=== PATIENT | male | born 1990 | race Caucasian/White ===

== ENCOUNTER 2016-12-29 13:10 | Emergency (ER) | payer OTHER ==
[~2016-12-29] VITALS: Ht 170.2 cm; Wt 65.0 kg
[~2016-12-29 13:10] MED LIST: ALBU.5I NEB; ALBU0.08 NEB; ALBUAER3 INH; PRED50 PO; VENTAER INH
[2016-12-29 13:13] VITALS: BP 124/75; PULSE 88; TEMP 97.7; O2SAT 99
[2016-12-29] MEDS ORDERED: ADVA100A INH (13:26)
--- NOTE | 2016-12-29 13:26 | PD ---
Physical Exam Date Seen by Provider: Dec 29, 2016 Time Seen by Provider: 13:23 Narrative 26 YOWM C/O DYSURIA AND PENILE D/C. POS UNPROTECTED INTERCOARSE. NONO ABD PAIN. NO F/C VSS. AWAITING BED PLACEMENT Data Data Last Documented VS Vital Signs Date Time Temp Pulse Resp B/P Pulse Ox O2 Delivery O2 Flow Rate FiO2 12/29/16 13:13 97.7 88 124/75 99 MDM Medical Record Reviewed: Yes Supervised Visit with KENAN: Yes Maxi Escalante Dec 29, 2016 13:26
[2016-12-29] MEDS ORDERED: LIDOCAINE HCL 1% 50 ML VIAL IM ONE (13:30)
[2016-12-29] MEDS ORDERED: cefTRIAXone 250 MG VIAL IM ONE (13:30)
[2016-12-29] MEDS ORDERED: AZITHROMYCIN PWD FOR SUSP 1 GM PACKET PO ONE (13:30)
--- NOTE | 2016-12-29 13:49 | PD ---
HPI Chief Complaint: Complaint Time Seen by Provider: 13:45 Travel History International Travel<30 days: No Contact w/Intl Traveler<30days: No Traveled to known affect area: No History of Present Illness HPI 26-year-old male presents to emergency Department with complaint of burning on urination and penile discharge. He noticed the burning on urination that started on Friday. Noticed the drainage from his penis today. He denies abdominal pain. Denies fever, chills, nausea, vomiting. Denies hematuria, urgency, frequency. Has not taken any medications or tried any treatments alleviate his symptoms. Engages in unprotected sexual intercourse with his girlfriend of 2 years and reports being monogamous. Allergies to, and ragweed, cultivated O pollen, dust. History of asthma. No other modifying factors or associated signs and symptoms. PFSH Past Medical History Medical History: Denies Significant Hx Asthma: Yes Anxiety: Yes Depression: Yes Heart Rhythm Problems: No Cardiovascular Problems: No High Cholesterol: No Chemotherapy: No Chest Pain: No Congestive Heart Failure: No COPD: No Diabetes: No Diminished Hearing: No Gastrointestinal Disorders: No Genitourinary: No Hypertension: No Immune Disorder: No Implanted Vascular Access Dvce: No Musculoskeletal: No Neurologic: No Psychiatric: Yes Reproductive: No Respiratory: Yes Immunizations Current: Yes Sleep Apnea: Yes (asthma in middle of night wakes him up) Thyroid Disease: No Past Surgical History Other Surgery: No Social History Alcohol Use: Yes (OCC) Tobacco Use: Yes Substance Use: Yes (pot occassionally) Allergies-Medications (Allergen,Severity, Reaction): Coded Allergies: Common Ragweed (Verified Allergy, Severe, cough, sneeze, wheeze, tightens chest airways. , 12/29/16) Cultivated Oat Pollen (Verified Allergy, Severe, cough, sneeze wheeze, tightens up chest airways. , 12/29/16) Dust (Verified Allergy, Severe, cough, sneeze, wheeze, tightens up chest airways, 12/29/16) Reported Meds & Prescriptions Reported Meds & Active Scripts Active Keflex (Cephalexin) 500 Mg Cap 500 Mg PO Q12H 7 Days Albuterol Neb (Albuterol Sulfate) 2.5 Mg/3 Ml Neb 2.5 Mg NEB Q4HR NEB While awake Proair Hfa 8.5 GM Inh (Albuterol Sulfate) 90 Mcg/Act Aer 2 Puff INH Q4-6H PRN 108 mcg/actuation Reported Advair Diskus Inh (Fluticasone-Salmeterol Inh) 100-50 Mcg/Blist Aer 1 Puff INH BID Rinse mouth after use. Albuterol Neb (Albuterol Sulfate) 2.5 Mg/0.5 Ml Neb 2.5 Mg NEB Q4HR NEB PRN Note: The Albuterol Sulfate Inhalation Solution is concentrated and must be diluted. Read complete instructions carefully before using. Ventolin Hfa 18 GM Inh (Albuterol Sulfate) 90 Mcg/Act Aer 2 Puff INH Q4H PRN Review of Systems Except as stated in HPI: all other systems reviewed are Neg Physical Exam Narrative GENERAL: Well-nourished, well-developed male patient, in no acute distress SKIN: Warm and dry. HEAD: Atraumatic. Normocephalic. EYES: Pupils equal and round. ENT: Mucosa pink and moist. NECK: Trachea midline. No lymphadenopathy. CARDIOVASCULAR: Regular rate and rhythm. No murmur appreciated. RESPIRATORY: No accessory muscle use. Clear to auscultation. Breath sounds equal bilaterally. GASTROINTESTINAL: Abdomen soft and nondisteneded; with tenderness at the umbilicus on palpation. Hepatic and splenic margins not palpable. Bowel sounds are active 4 quadrants. GENITOURINARY: Circumcised. Testes descended bilaterally without evidence of rotation. No lesions or erythema. Large amount of Milky, white urethral discharge. MUSCULOSKELETAL: No obvious deformities. No clubbing. No cyanosis. No edema. NEUROLOGICAL: Awake and alert. Oriented 3. No obvious cranial nerve deficits. Motor grossly within normal limits. Normal speech. Moves all extremities. 5/5 strength to all extremities. PSYCHIATRIC: Appropriate mood and affect; insight and judgment normal. Data Data Last Documented VS Vital Signs Date Time Temp Pulse Resp B/P Pulse Ox O2 Delivery O2 Flow Rate FiO2 12/29/16 13:13 97.7 88 124/75 99 Orders Gc And Chlamydia Pcr (12/29/16 13:27) Urinalysis - C+S If Indicated (12/29/16 13:27) Azithromycin Powd Pack (Zithromax Powd P (12/29/16 13:30) Ceftriaxone Inj (Rocephin Inj) (12/29/16 13:30) Lidocaine 1% Inj (50 Ml) (Xylocaine 1% I (12/29/16 13:30) Urine Culture (12/29/16 13:30) Labs Laboratory Tests Test 12/29/16 13:30 Urine Color YELLOW Urine Turbidity HAZY Urine pH 6.0 Urine Specific [place] 1.015 Urine Protein NEG mg/dL Urine Glucose (UA) NEG mg/dL Urine Ketones NEG mg/dL Urine Occult Blood SMALL Urine Nitrite NEG Urine Bilirubin NEG Urine Urobilinogen LESS THAN 2.0 MG/DL Urine Leukocyte Esterase LARGE Urine RBC 15 /hpf Urine WBC /hpf Urine Bacteria FEW /hpf Microscopic Urinalysis Comment CULTURE INDICATED MDM Medical Decision Making Medical Screen Exam Complete: Yes Emergency Medical Condition: Yes Medical Record Reviewed: Yes Differential Diagnosis Chlamydia, gonorrhea, sexual transmitted infection, urethritis, UTI Narrative Course 26-year-old male with urethral discharge on physical exam. He reports burning on urination. She is afebrile and nontoxic-appearing. He denies fever, chills , nausea, vomiting. Urinalysis, chlamydia, gonorrhea, Rocephin, azithromycin ordered in triage. Patient empirically treated for sexual transmitted infection. Chlamydia and gonorrhea pending. 1419: Urinalysis with signs of infection. Urine culture pending. Keflex prescribed for home. Patient verbalizes understanding and agreement with treatment plan. Patient is medically cleared and stable for discharge. Discussed reasons to return to the emergency department. Instructed patient to follow up with primary care provider. Patient agrees with treatment plan. The patients vital signs are stable and the patient is stable for outpatient follow- up and treatment. Patient discharged home, stable and in no acute distress. Diagnosis Primary Impression: Urethritis Referrals: Primary Care Physician Patient Instructions: Chlamydia (ED), General Instructions, Gonorrhea (ED), Sexually Transmitted Diseases (ED) Departure Forms: Tests/Procedures, Work Release Enter return to work date: Dec 30, 2016 Additional Instructions: Avoid sexual activity until you follow up with her primary care provider Inform all sexual partners within the past 3-6 months that they need to be evaluated and treated Use condoms every time you have sex Follow-up with primary care provider Return to the emergency department immediately with worsening of symptoms Med/Other Pt SpecificInfo: Prescription(s) given, No Meds Exist/No RX given Scripts Cephalexin (Keflex)500 Mg Xan662 Mg PO Q12H 7 Days Ref 0 Prov:Gina Ratliff 12/29/16 Disposition: 01 DISCHARGE HOME Condition: Stable Gina Ratliff Dec 29, 2016 13:49 Gina Ratliff Dec 29, 2016 13:49
[2016-12-29 14:16] LABS: BACTERIA, URINE FEW /hpf; BLOOD, URINE SMALL (NEG); COMMENT (UR) CULTURE INDICATED; CULTURE IF INDICATED CULTURE INDICATED; GLUCOSE,URINE NEG (NEG); KETONE, URINE NEG (NEG); NITRITE,URINE NEG (NEG); URINE COLOR YELLOW (YELLW/STRAW)
[2016-12-29] MEDS ORDERED: CEPH-460 PO (14:20)
[2016-12-29 16:30] LABS: CHLAMYDIA PCR NOT DETECTED (NOT DETECT); NEISSERIA PCR DETECTED (NOT DETECT)
== END 2016-12-29 14:41 | disposition home or self-care (01) ==
LOC: NEPK 13:10
DX: N34.2 Other urethritis (principal); J45.909 Unspecified asthma, uncomplicated; F41.9 Anxiety disorder, unspecified; F32.9 Major depressive disorder, single episode, unspecified; Z72.0 Tobacco use
CPT/HCPCS: 81001; 87086; 87491; 87591; 96372; 99283; J0696

== ENCOUNTER 2017-07-29 01:50 | Emergency (ER) | payer OTHER ==
[~2017-07-29] VITALS: Ht 200.7 cm; Wt 61.0 kg
[~2017-07-29 01:50] MED LIST changes: +ADVA100A INH; +CEPH-460 PO; -PRED50 PO
[2017-07-29 01:52] VITALS: BP 121/65; PULSE 111; RESP 16; TEMP 100; O2SAT 100
--- NOTE | 2017-07-29 02:33 | PD ---
HPI Chief Complaint: Cold / Flu Symptoms Time Seen by Provider: 02:24 Travel History International Travel<30 days: No Contact w/Intl Traveler<30days: No Traveled to known affect area: No History of Present Illness HPI The patient is a 27 year old male who presents to the [facility] emergency department with a history of body aches, body cramping, nausea, and headache that began this morning. He has had a subjective fever. He additionally reports having a scratchy/sore throat and a cough productive of clear sputum. He reports having nasal congestion, however no nasal discharge or rhinorrhea. He denies having any vomiting He moved his bowels today. He denies any blood in the stool. His brother had similar symptoms last week. He denies receiving an influenza vaccination this season. The patient reports that his headache is on the back and top of his head. The patient denies having any neck stiffness, chest pain, shortness of breath, abdominal pain, urinary symptoms, or neurologic symptoms. 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 [facility] Past Medical History Narrative Medical The patient's past medical history is significant for asthma, anxiety, and depression. PCP: Dr. Alejandra Crain Asthma: Yes Anxiety: Yes Depression: Yes Heart Rhythm Problems: No Cardiovascular Problems: No High Cholesterol: No Chemotherapy: No Chest Pain: No Congestive Heart Failure: No COPD: No Diabetes: No Diminished Hearing: No Gastrointestinal Disorders: No Genitourinary: No Hypertension: No Immune Disorder: No Implanted Vascular Access Dvce: No Musculoskeletal: No Neurologic: No Psychiatric: Yes Reproductive: No Respiratory: Yes Immunizations Current: Yes Sleep Apnea: Yes (asthma in middle of night wakes him up) Thyroid Disease: No Past Surgical History Surgical History: No Previous Surgery Other Surgery: No Social History Alcohol Use: Yes ([facility]) Tobacco Use: No Substance Use: No Allergies-Medications (Allergen,Severity, Reaction): Coded Allergies: grass pollen (Unverified Allergy, Severe, cough, sneeze wheeze, tightens up chest airways. , 05/07/17) house dust (Unverified Allergy, Severe, cough, sneeze, wheeze, tightens up chest airways, 05/07/17) ragweed pollen (Unverified Allergy, Severe, cough, sneeze, wheeze, tightens chest airways. , 05/07/17) Reported Meds & Prescriptions Reported Meds & Active Scripts Active Keflex (Cephalexin) 500 Mg Cap 500 Mg PO Q12H 7 Days Albuterol Neb (Albuterol Sulfate) 2.5 Mg/3 Ml Neb 2.5 Mg NEB Q4HR NEB While awake Proair Hfa 8.5 GM Inh (Albuterol Sulfate) 90 Mcg/Act Aer 2 Puff INH Q4-6H PRN 108 mcg/actuation Reported Advair Diskus Inh (Fluticasone-Salmeterol Inh) 100-50 Mcg/Blist Aer 1 Puff INH BID Rinse mouth after use. Albuterol Neb (Albuterol Sulfate) 2.5 Mg/0.5 Ml Neb 2.5 Mg NEB Q4HR NEB PRN Note: The Albuterol Sulfate Inhalation Solution is concentrated and must be diluted. Read complete instructions carefully before using. Ventolin Hfa 18 GM Inh (Albuterol Sulfate) 90 Mcg/Act Aer 2 Puff INH Q4H PRN Review of Systems Except as stated in HPI: all other systems reviewed are Neg General / Constitutional: Positive: Fever, Chills Eyes: No: Visual changes HENT: Positive: Congestion, No: Headaches Cardiovascular: No: Chest Pain or Discomfort Respiratory: Positive: Cough, No: Shortness of Breath Gastrointestinal: Positive: Nausea, No: Vomiting, Diarrhea, Abdominal Pain Genitourinary: No: Dysuria Musculoskeletal: No: Pain Skin: No Rash Neurologic: No: Weakness, Focal Abnormalities, Change in Mentation, Slurred Speech, Sensory Disturbance Psychiatric: No: Depression Endocrine: No: Polydipsia Hematologic/Lymphatic: No: Easy Bruising Physical Exam Narrative General: The patient is a well-developed well-nourished male in no acute distress. Head and Neck exam: Head is normocephalic atraumatic. Eyes: EOMI, pupils are equal round and reactive to light. Nose: Midline septum with pink mucous membranes Mouth: Dentition unremarkable. Moist mucus membranes. Posterior oropharynx is not erythematous. No tonsillar hypertrophy. Uvula midline. Airway patent. Neck: No palpable lymphadenopathy. No nuchal rigidity. No thyromegaly. Negative Brudzinski, negative Kernig sign. Cardiovascular: Sinus tachycardia in the low 100 without murmurs, gallops, or rubs. No pulse deficit to the extremities on simultaneous auscultation and palpation of his radial artery. Lungs: Clear to auscultation bilaterally. No wheezes, rhonchi, or rales. Abdomen: Soft, without tenderness to palpation in all 4 quadrants of the abdomen. No guarding, rebound, or rigidity. Normal bowel sounds are audible. No tenderness on palpation of McBurney's point. Extremities: No clubbing, cyanosis, or edema. 2+ pulses in all 4 extremities. No calf tenderness on palpation. The patient has no joint swelling or erythema. Back: No spinous process tenderness to palpation. No costovertebral angle tenderness to palpation. Neurologic Exam: Grossly nonfocal. Skin Exam: No rash noted. Intact skin that is warm and dry. Data Data Last Documented VS Vital Signs Date Time Temp Pulse Resp B/P (MAP) Pulse Ox O2 Delivery O2 Flow Rate FiO2 07/29/17 02:41 100 Room Air 07/29/17 02:05 16 07/29/17 01:52 100.0 111 Orders Orders Complete Blood Count With Diff (07/29/17 02:35) Comprehensive Metabolic Panel (07/29/17 02:35) Creatine Kinase (Cpk) (07/29/17 02:35) Ckmb (Isoenzyme) Profile (07/29/17 02:35) Lipase (07/29/17 02:35) Urinalysis - C+S If Indicated (07/29/17 02:35) Magnesium (Mg) (07/29/17 02:35) Influenzae A/B Antigen (07/29/17 02:35) Chest, Single Ap (07/29/17 02:35) Iv Access Insert/Monitor (07/29/17 02:35) Ecg Monitoring (07/29/17 02:35) Oximetry (07/29/17 02:35) Sodium Chlor 0.9% 1000 Ml Inj (Ns 1000 M (07/29/17 02:45) Ondansetron Inj (Zofran Inj) (07/29/17 02:45) Ketorolac Inj (Toradol Inj) (07/29/17 02:45) CKMB (07/29/17 02:45) CKMB% (07/29/17 02:45) Acetaminophen (Tylenol) (07/29/17 04:30) Sodium Chlorid 0.9% 500 Ml Inj (Ns 500 M (07/29/17 05:15) Ed Discharge Order (07/29/17 06:34) Labs Laboratory Tests Test 07/29/17 02:45 07/29/17 06:10 White Blood Count 6.1 TH/MM3 Red Blood Count 5.16 MIL/MM3 Hemoglobin 14.8 GM/DL Hematocrit 43.2 % Mean Corpuscular Volume 83.7 FL Mean Corpuscular Hemoglobin 28.7 PG Mean Corpuscular Hemoglobin Concent 34.3 % Red Cell Distribution Width 12.6 % Platelet Count 156 TH/MM3 Mean Platelet Volume 8.1 FL Neutrophils (%) (Auto) 89.1 % Lymphocytes (%) (Auto) 3.0 % Monocytes (%) (Auto) 4.9 % Eosinophils (%) (Auto) 2.8 % Basophils (%) (Auto) 0.2 % Neutrophils # (Auto) 5.5 TH/MM3 Lymphocytes # (Auto) 0.2 TH/MM3 Monocytes # (Auto) 0.3 TH/MM3 Eosinophils # (Auto) 0.2 TH/MM3 Basophils # (Auto) 0.0 TH/MM3 CBC Comment DIFF FINAL Differential Comment Blood Urea Nitrogen 14 MG/DL Creatinine 0.89 MG/DL Random Glucose 98 MG/DL Total Protein 7.7 GM/DL Albumin 4.5 GM/DL Calcium Level 8.8 MG/DL Magnesium Level 1.7 MG/DL Alkaline Phosphatase 56 U/L Aspartate Amino Transf (AST/SGOT) 21 U/L Alanine Aminotransferase (ALT/SGPT) 20 U/L Total Bilirubin 0.6 MG/DL Sodium Level 138 MEQ/L Potassium Level 3.6 MEQ/L Chloride Level 102 MEQ/L Carbon Dioxide Level 25.7 MEQ/L Anion Gap 10 MEQ/L Estimat Glomerular Filtration Rate 103 ML/MIN Total Creatine Kinase 267 U/L Creatine Kinase MB 0.8 NG/ML Lipase 128 U/L Urine Color YELLOW Urine Turbidity CLEAR Urine pH 6.0 Urine Specific [place] 1.035 Urine Protein TRACE mg/dL Urine Glucose (UA) NEG mg/dL Urine Ketones 10 mg/dL Urine Occult Blood NEG Urine Nitrite NEG Urine Bilirubin NEG Urine Urobilinogen 2.0 MG/DL Urine Leukocyte Esterase NEG Urine RBC 1 /hpf Urine WBC 2 /hpf Urine Squamous Epithelial Cells <1 /hpf Urine Hyaline Casts 1 /lpf Urine Mucus MANY /lpf Microscopic Urinalysis Comment CULT NOT INDICATED MDM Medical Decision Making Medical Screen Exam Complete: Yes Emergency Medical Condition: Yes Medical Record Reviewed: Yes Interpretation(s) Last Impressions Chest X-Ray 07/29/17 0235 Signed Impressions: Service Date/Time: Saturday, July 29, 2017 02:51 - CONCLUSION: 1. No acute cardiopulmonary disease. Jeff Ling MD Differential Diagnosis Influenza, versus pneumonia, versus viral syndrome, versus sinusitis, versus heat exhaustion, versus rhabdomyolysis Narrative Course During the course of the patients emergency department visit, the patients history, examination, and differential diagnosis were reviewed with the patient. The patient was placed on a financial institution treasurer with oximetry and frequent blood pressure monitoring. The patient had IV access obtained and blood work sent for analysis. The patient was initially provided normal saline 1 L IV fluid bolus, Zofran 4 mg IV, Toradol 15 mg IV. The patients laboratory studies were reviewed and remarkable for a white count of 6.1, hemoglobin 14.8, platelets 156 with 89.1 neutrophils, lymphocytes 3, CMP is unremarkable. CPK is 267, CK-MB 0.8, lipase 128, urinalysis shows 10 ketones otherwise unremarkable. The patient was given an additional normal saline IV fluid bolus. Influenza testing is negative. Radiology studies were reviewed and remarkable for a chest x-ray that shows no acute cardiopulmonary disease. The patient's symptoms are most consistent with a viral upper respiratory infection. The patient was instructed to push fluids and get plenty of rest. The patient was given a work release for 2 days. The patient is resting comfortably and feels better, is alert and in no distress. The patients results and examination findings were discussed with the patient. The repeat examination is unremarkable and benign. The history, exam, diagnostic testing, and current condition do not suggest any significant pathology to warrant further testing, continued ED treatment, admission, or surgical evaluation at this point. The vital signs have been stable. The patient does not have uncontrollable pain, intractable vomiting, or other significant symptoms. The patient's condition is stable and appropriate for discharge. The patient will pursue further outpatient evaluation with a primary care physician or other designated or consulting physician as indicated in the discharge instructions. The patient expressed understanding and was agreeable with this plan. Diagnosis Primary Impression: Upper respiratory infection Qualified Codes: J06.9 - Acute upper respiratory infection, unspecified; B97.89 - Other viral agents as the cause of diseases classified elsewhere Referrals: Primary Care Physician 1 week Patient Instructions: General Instructions, Upper Respiratory Infection (ED) Departure Forms: Tests/Procedures, Work Release Enter return to work date: Aug 01, 2017 Med/Other Pt SpecificInfo: Prescription(s) given Scripts Promethazine Supp (Phenergan Supp) 12.5 Mg Supp 12.5 MG RECTAL Q6H Y for NAUSEA OR VOMITING, #3 SUPP 0 Refills Prov: Serene Booker MD 07/29/17 Disposition: 01 DISCHARGE HOME Condition: Stable Serene Booker MD Jul 29, 2017 02:33
[2017-07-29 02:41] VITALS: O2SAT 100
[2017-07-29] MEDS ORDERED: ONDANSETRON HCL 4 MG/2 ML VIAL IV ONE (02:45)
[2017-07-29] MEDS ORDERED: SODIUM CHLOR 0.9% 1000 ML INJ 1,000 ML IV ONE (02:45)
[2017-07-29] MEDS ORDERED: KETOROLAC TROMETHAMINE 30 MG/ML (IVP) VIAL IV PUSH ONE (02:45)
[2017-07-29 02:58] LABS: AUTOMATED NEUTROPHIL # 5.5 TH/MM3 (1.8-7.7); BASOPHIL % 0.2 % (0.0-2.0); EOSINOPHIL # 0.2 TH/MM3 (0-0.4); EOSINOPHIL % 2.8 % (0.0-4.0); HEMATOCRIT 43.2 % (39.0-51.0); HEMO FLAGS DIFF FINAL; LYMPHOCYTE # 0.2 TH/MM3 (1.0-4.8); MEAN CELL VOLUME 83.7 FL (80.0-100.0); MEAN CORPUSCULAR HEMOGLOBIN 28.7 PG (27.0-34.0); MEAN CORPUSCULAR HGB CONC 34.3 % (32.0-36.0); MONO % 4.9 % (0.0-8.0); NEUT % 89.1 % (16.0-70.0); PLATELET COUNT 156 TH/MM3 (150-450); RED BLOOD COUNT 5.16 MIL/MM3 (4.50-5.90); RED CELL DISTRIBUTION WIDTH 12.6 % (11.6-17.2); WHITE BLOOD COUNT 6.1 TH/MM3 (4.0-11.0)
--- NOTE | 2017-07-29 03:10 | RADRPT ---
EXAM DATE/TIME: 07/29/2017 02:51 [facility] COMPARISON: CHEST SINGLE AP, December 08, 2014, 1:26. INDICATIONS : Flu like symptoms. MEDICAL HISTORY : None. SURGICAL HISTORY : None. ENCOUNTER: Initial ACUITY: 1 day PAIN SCORE: 0/10 LOCATION: Bilateral chest FINDINGS: A single view of the chest demonstrates the lungs to be symmetrically aerated without evidence of mas s, infiltrate or effusion. The cardiomediastinal contours are unremarkable. Osseous structures are intact. CONCLUSION: 1. No acute cardiopulmonary disease. Jeff Ling MD on July 29, 2017 at 3:09 Board Certified Radiologist. This report was verified electronically.
[2017-07-29 03:21] LABS: ALKALINE PHOSPHATASE 56 U/L (45-117); CREATINE KINASE 267 U/L (39-308); TOTAL BILIRUBIN ADULT 0.6 MG/DL (0.2-1.0)
[2017-07-29 03:23] LABS: ALT (GPT) 20 U/L (12-78); ANION GAP 10 MEQ/L (5-15); AST (GOT) 21 U/L (15-37); BICARBONATE 25.7 MEQ/L (21.0-32.0); BLOOD UREA NITROGEN 14 MG/DL (7-18); CHLORIDE 102 MEQ/L (98-107); GLOMERULAR FILTRATION RATE 103 ML/MIN (>89); MAGNESIUM 1.7 MG/DL (1.5-2.5); POTASSIUM 3.6 MEQ/L (3.5-5.1); SODIUM (NA) 138 MEQ/L (136-145)
[2017-07-29 03:37] LABS: CKMB 0.8 NG/ML (0.5-3.6)
[2017-07-29] MEDS ORDERED: ACETAMINOPHEN 325 MG TAB PO ONE (04:30)
[2017-07-29] MEDS ORDERED: SODIUM CHLORID 0.9% 500 ML INJ 500 ML IV ONE (05:15)
[2017-07-29 06:25] LABS: BLOOD, URINE NEG (NEG); GLUCOSE,URINE NEG (NEG); HYALINE CAST, URINE 1 /lpf (RARE); KETONE, URINE 10 mg/dL (NEG); MUCUS URINE MANY /lpf (OCC); NITRITE,URINE NEG (NEG); SQUAMOUS EPITHELIAL CELL URINE <1 /hpf (0-5); URINE COLOR YELLOW (YELLW/STRAW)
[2017-07-29 06:26] LABS: COMMENT (UR) CULT NOT INDICATED; CULTURE IF INDICATED CULT NOT INDICATED
[2017-07-29] MEDS ORDERED: PROM2SUP RECTAL (06:35)
== END 2017-07-29 07:01 | disposition home or self-care (01) ==
LOC: NEPC 01:50
DX: J06.9 Acute upper respiratory infection, unspecified (principal); R00.0 Tachycardia, unspecified; R11.0 Nausea; J45.909 Unspecified asthma, uncomplicated; F41.9 Anxiety disorder, unspecified; F32.9 Major depressive disorder, single episode, unspecified; Z79.52 Long term (current) use of systemic steroids; Z79.899 Other long term (current) drug therapy; Z79.51 Long term (current) use of inhaled steroids
CPT/HCPCS: 71010; 80053; 81001; 82550; 82552; 83690; 83735; 85025; 87804; 96361; 96374; 96375; 99284; J1885; J2405; J7030; J7040